=== PATIENT | male | born 1995 | race Caucasian/White ===

== ENCOUNTER 2017-02-26 17:42 | Emergency (ER) | payer OTHER ==
[2017-02-26 18:14] VITALS: BP 136/79
--- NOTE | 2017-02-26 18:21 | UC ---
Ear Complaint HPI - HPI Summary HPI Summary: 21 YEAR OLD MALE PRESENTS WITH COMPLAINS OF BLEEDING FROM THE LEFT EAR. - History of Current Complaint Chief Complaint: UCEar Stated Complaint: BLOOD & F.O.S IN EAR Time Seen by Provider: 02/26/17 18:18 Hx Obtained From: Patient Onset/Duration: Sudden Onset Severity Initially: Moderate Severity Currently: Moderate Pain Scale Used: 0-10 Numeric - 5 - Allergies/Home Medications Allergies/Adverse Reactions: Allergies Allergy/AdvReac Type Severity Reaction Status Date / Time No Known Allergies Allergy Verified 02/26/17 18:14 Home Medications: Home Medications SUMAtriptan TAB* [Imitrex TAB*] 100 mg PO SEE INSTRUCTIONS PRN 02/26/17 [ History Confirmed 02/26/17] PMH/Surg Hx/FS Hx/Imm Hx - Surgical History Surgical History: Yes Surgery Procedure, Year, and Place: WISDOM TOOTH appe 03/10 - Family History Known Family History: Positive: Hypertension - Social History Alcohol Use: Rare Substance Use Type: None Smoking Status (MU): Never Smoked Tobacco - Immunization History Most Recent Influenza Vaccination: none Review of Systems Constitutional: Negative Skin: Negative Eyes: Negative ENT: Ear Ache Respiratory: Negative Cardiovascular: Negative Gastrointestinal: Negative Genitourinary: Negative Motor: Negative Neurovascular: Negative Musculoskeletal: Negative Neurological: Negative Psychological: Negative All Other Systems Reviewed And Are Negative: Yes Physical Exam Triage Information Reviewed: Yes Vital Signs: Initial Vital Signs Temp 36.9 C 02/26/17 18:11 Pulse 74 02/26/17 18:11 Resp 16 02/26/17 18:11 BP 136/79 02/26/17 18:11 Pulse Ox 100 02/26/17 18:11 Vital Signs Reviewed: Yes Eye Exam: Normal ENT: Positive: Other: - EXTERNAL CANAL ERYTHEMA Dental Exam: Normal Neck exam: Normal Neck: Positive: 1 Respiratory Exam: Normal Cardiovascular Exam: Normal Abdominal Exam: Normal Musculoskeletal Exam: Normal Neurological Exam: Normal Psychological Exam: Normal Skin Exam: Normal Ear Complaint Course/Dx - Differential Dx/Diagnosis Provider Diagnoses: OTITIS EXTERNA Discharge - Discharge Plan Condition: Stable Disposition: HOME Prescriptions: Amoxicillin PO (*) [Amoxicillin 875 MG (*)] 875 mg PO BID #30 tab Neomyc/Polym/HC 1% OTIC SUSP* [Cortisporin Otic Susp 1%*] 4 drop LEFT EAR TID # 1 btl Patient Education Materials: Otitis Externa (ED) Referrals: Jake Diaz MD [Primary Care Provider] -
== END 2017-02-26 18:33 | disposition home or self-care (01) ==
LOC: UCEAST 17:42
DX: H60.92 Unspecified otitis externa, left ear (principal)
CPT/HCPCS: 99212; G0463

== ENCOUNTER → 2017-03-02 16:03 | Emergency (ER) | payer OTHER ==
[2017-03-02 18:43] LABS: Hematocrit 46 % (42-52); Hemoglobin 16.4 g/dl (14.0-18.0); Mean Corpuscular HGB Conc 36 g/dl (31-36); Mean Corpuscular Hemoglobin 29 pg (27-31); Mean Corpuscular Volume 82 fL (80-94); Mean Platelet Volume 10 um3 (7.4-10.4); Red Blood Count 5.58 10^6/ul (4.0-5.4); Red Cell Distribution Width 13 % (10.5-15); White Blood Count 7.4 10^3/ul (3.5-10.8)
[2017-03-02 18:47] LABS: Comments Flag Yes
[2017-03-02 18:57] LABS: Urine Bilirubin Negative (Negative); Urine Glucose Negative (Negative); Urine Nitrite Negative (Negative)
[2017-03-02 18:58] LABS: Albumin 4.8 g/dL (3.2-5.2); BUN/Creatinine Ratio 9.9 (8-20); C Reactive Protein 3.56 mg/L (< 5.00); Calcium 9.4 mg/dL (8.6-10.3); EGFR African American 135.3 (>60); EGFR Non-African American 105.2 (>60); Globulin 2.8 g/dL (2-4); Total Bilirubin 0.8 mg/dL (0.2-1.0); Total Protein 7.6 g/dL (6.4-8.9)
--- NOTE | 2017-03-02 20:22 | RAD ---
CLINICAL HISTORY: Right flank pain COMPARISON: None TECHNIQUE: Multiple contiguous axial CT scans were obtained of the abdomen and pelvis, without intravenous contrast enhancement. Coronal and sagittal multiplanar reformations are submitted for review. Oral contrast was not administered. FINDINGS: The study is limited by the lack of intravenous contrast. This limits evaluation of the solid organs and vasculature. LUNG BASES: The lung bases are clear. LIVER: The liver is normal in shape, size, contour, and attenuation. BILE DUCTS: There is no intrahepatic or extrahepatic biliary dilatation. GALLBLADDER: The gallbladder is normal, without pericholecystic inflammatory change. PANCREAS: The pancreas is normal, without mass or ductal dilatation. SPLEEN: The spleen is at the upper limits of normal in size UPPER GI TRACT: Evaluation of the gastrointestinal tract is limited by incomplete gastric distention. The upper GI tract is unremarkable. SMALL BOWEL AND MESENTERY: The small bowel is normal in contour, course, and caliber. There is no obstruction or dilatation. COLON: The colon is normal in contour, course, caliber. There is no pericolonic inflammatory change. The appendix is not clearly visualized. Surgical clips are noted in the region of the cecum consistent with previous appendectomy. ADRENALS: Normal bilaterally. KIDNEYS: The kidneys are normal in shape, size, contour, and axis. There is no hydronephrosis or nephrolithiasis. BLADDER: The bladder is smooth in contour. PELVIC ORGANS: The prostate gland is normal. The seminal vesicles are symmetric. AORTA: The aorta is normal. IVC: Unremarkable LYMPH NODES: There is no lymphadenopathy by size criteria. ABDOMINAL WALL: There is no evidence for abdominal wall hernia. BONES AND SOFT TISSUES: Unremarkable OTHER: None IMPRESSION: NO HYDRONEPHROSIS OR NEPHROLITHIASIS.
[2017-03-02 21:34] VITALS: BP 120/80
--- NOTE | 2017-03-02 22:50 | ED ---
Madhuri Monroe Rebecca, scribed for Tavo Vaughn on 03/02/17 at 1917 . Abdominal Pain/Male - HPI Summary HPI Summary: Pt is a 21 y/o M who presents to ED c/o RLQ abdominal pain. Sx began about 1 week ago and have been constant since onset. Pain is currently moderate, ranked 7/10 with occasional sharp, shooting sensations into the groin. Sx aggravated and alleviated by nothing. Additionally c/o N/V and decreased PO intake secondary to vomiting. PSHx appendectomy. Current pain is similar to that felt during appendicitis. - History of Current Complaint Chief Complaint: EDAbdPain Stated Complaint: LOWER ABD PAIN/FEVER/N/V Time Seen by Provider: 03/02/17 19:11 Hx Obtained From: Patient Onset/Duration: Lasting Weeks - 1 week, Still Present Timing: Constant Severity Currently: Moderate Pain Intensity: 7 Pain Scale Used: 0-10 Numeric Location: Discrete At: RLQ Radiates: Yes Radiates to: Inguinal - Occasional Character: Sharp - Occasional Aggravating Factor(s): Nothing Alleviating Factor(s): Nothing Associated Signs And Symptoms: Positive: Nausea, Vomiting, Other - Decreased PO intake Similar Episode/Dx As:: Sensation during appendicitis - Allergies/Home Medications Allergies/Adverse Reactions: Allergies Allergy/AdvReac Type Severity Reaction Status Date / Time No Known Allergies Allergy Verified 02/26/17 18:14 PMH/Surg Hx/FS Hx/Imm Hx Cardiovascular History: Reports: Hx Congenital Heart Disease, Other Cardiovascular Problems/Disorders - MITRAL REGURGITATION Respiratory History: Reports: Other Respiratory Problems/Disorders - Pulmonary HTN Denies: Hx Asthma Neurological History: Reports: Hx Seizures - Surgical History Surgery Procedure, Year, and Place: WISDOM TOOTH appe 03/10 Infectious Disease History: No Infectious Disease History: Denies: Traveled Outside the [place] in Last 30 Days - Family History Known Family History: Positive: Hypertension - Social History Alcohol Use: Rare Substance Use Type: Reports: None Smoking Status (MU): Never Smoked Tobacco Review of Systems Positive: Abdominal Pain, Vomiting, Nausea Positive: other - Decreased PO intake All Other Systems Reviewed And Are Negative: Yes Physical Exam - Summary Physical Exam Summary: Appearance: Well appearing, no pain distress Skin: warm, dry, reflects adequate perfusion Head/face: normal Eyes: EOMI, DANIELA ENT: normal Neck: supple, nontender Respiratory: CTA, breath sounds present Cardiovascular: RRR, pulses symmetrical Abdomen: RLQ and R flank tenderness, soft Bowel: present Musculoskeletal: normal, strength/ROM intact Neuro: normal, sensory motor intact, A&Ox3 Triage Information Reviewed: Yes Vital Signs On Initial Exam: Initial Vitals Temp Pulse Resp BP Pulse Ox 98.5 F 67 14 132/81 99 03/02/17 16:30 03/02/17 16:30 03/02/17 16:30 03/02/17 16:30 03/02/17 16:30 Vital Signs Reviewed: Yes Diagnostics - Vital Signs Vital Signs Temp Pulse Resp BP Pulse Ox 03/02/17 18:26 98.6 F 61 14 119/82 100 03/02/17 16:30 98.5 F 67 14 132/81 99 - Laboratory Lab Results: Lab Results 03/02/17 03/02/17 03/02/17 Range/Units 18:35 18:35 18:35 WBC 7.4 (3.5-10.8) 10^3/ul RBC 5.58 H (4.0-5.4) 10^6/ul Hgb 16.4 (14.0-18.0) g/dl Hct 46 (42-52) % MCV 82 (80-94) fL MCH 29 (27-31) pg MCHC 36 (31-36) g/dl RDW 13 (10.5-15) % Plt Count 186 (150-450) 10^3/ul MPV 10 (7.4-10.4) um3 Neut % (Auto) 65.1 (38-83) % Lymph % (Auto) 26.0 (25-47) % Banks % (Auto) 6.6 (1-9) % Eos % (Auto) 1.6 (0-6) % Baso % (Auto) 0.7 (0-2) % Absolute Neuts (auto) 4.8 (1.5-7.7) 10^3/ul Absolute Lymphs (auto) 1.9 (1.0-4.8) 10^3/ul Absolute Monos (auto) 0.5 (0-0.8) 10^3/ul Absolute Eos (auto) 0.1 (0-0.6) 10^3/ul Absolute Basos (auto) 0.1 (0-0.2) 10^3/ul Absolute Nucleated RBC 0.01 10^3/ul Nucleated RBC % 0.1 Sodium 137 (133-145) mmol/L Potassium 4.0 (3.5-5.0) mmol/L Chloride 104 (101-111) mmol/L Carbon Dioxide 27 (22-32) mmol/L Anion Gap 6 (2-11) mmol/L BUN 9 (6-24) mg/dL Creatinine 0.91 (0.67-1.17) mg/dL Est GFR ( Amer) 135.3 (>60) Est GFR (Non-Af Amer) 105.2 (>60) BUN/Creatinine Ratio 9.9 (8-20) Glucose 100 (70-100) mg/dL Lactic Acid 0.8 (0.5-2.0) mmol/L Calcium 9.4 (8.6-10.3) mg/dL Total Bilirubin 0.80 (0.2-1.0) mg/dL AST 13 (13-39) U/L ALT 14 (7-52) U/L Alkaline Phosphatase 51 (34-104) U/L C-Reactive Protein 3.56 (< 5.00) mg/L Total Protein 7.6 (6.4-8.9) g/dL Albumin 4.8 (3.2-5.2) g/dL Globulin 2.8 (2-4) g/dL Albumin/Globulin Ratio 1.7 (1-3) Lipase 10 L (11.0-82.0) U/L Urine Color Urine Appearance Urine pH (5-9) Ur Specific Putnam (1.010-1.030) Urine Protein (Negative) Urine Ketones (Negative) Urine Blood (Negative) Urine Nitrate (Negative) Urine Bilirubin (Negative) Urine Urobilinogen (Negative) Ur Leukocyte Esterase (Negative) Urine Glucose (Negative) 03/02/17 Range/Units 18:35 WBC (3.5-10.8) 10^3/ul RBC (4.0-5.4) 10^6/ul Hgb (14.0-18.0) g/dl Hct (42-52) % MCV (80-94) fL MCH (27-31) pg MCHC (31-36) g/dl RDW (10.5-15) % Plt Count (150-450) 10^3/ul MPV (7.4-10.4) um3 Neut % (Auto) (38-83) % Lymph % (Auto) (25-47) % Banks % (Auto) (1-9) % Eos % (Auto) (0-6) % Baso % (Auto) (0-2) % Absolute Neuts (auto) (1.5-7.7) 10^3/ul Absolute Lymphs (auto) (1.0-4.8) 10^3/ul Absolute Monos (auto) (0-0.8) 10^3/ul Absolute Eos (auto) (0-0.6) 10^3/ul Absolute Basos (auto) (0-0.2) 10^3/ul Absolute Nucleated RBC 10^3/ul Nucleated RBC % Sodium (133-145) mmol/L Potassium (3.5-5.0) mmol/L Chloride (101-111) mmol/L Carbon Dioxide (22-32) mmol/L Anion Gap (2-11) mmol/L BUN (6-24) mg/dL Creatinine (0.67-1.17) mg/dL Est GFR ( Amer) (>60) Est GFR (Non-Af Amer) (>60) BUN/Creatinine Ratio (8-20) Glucose (70-100) mg/dL Lactic Acid (0.5-2.0) mmol/L Calcium (8.6-10.3) mg/dL Total Bilirubin (0.2-1.0) mg/dL AST (13-39) U/L ALT (7-52) U/L Alkaline Phosphatase (34-104) U/L C-Reactive Protein (< 5.00) mg/L Total Protein (6.4-8.9) g/dL Albumin (3.2-5.2) g/dL Globulin (2-4) g/dL Albumin/Globulin Ratio (1-3) Lipase (11.0-82.0) U/L Urine Color Yellow Urine Appearance Cloudy Urine pH 6.0 (5-9) Ur Specific Putnam 1.025 (1.010-1.030) Urine Protein Negative (Negative) Urine Ketones Trace H (Negative) Urine Blood Negative (Negative) Urine Nitrate Negative (Negative) Urine Bilirubin Negative (Negative) Urine Urobilinogen Negative (Negative) Ur Leukocyte Esterase Negative (Negative) Urine Glucose Negative (Negative) Result Diagrams: 03/02/17 18:35 03/02/17 18:35 Lab Statement: Any lab studies that have been ordered have been reviewed, and results considered in the medical decision making process. - CT CT Abd/Pel CT Interpretation: No Acute Changes - NO HYDRONEPHROSIS OR NEPHROLITHIASIS. ED physician reviewed radiolgy report and agrees. CT Interpretation Completed By: Radiologist Re-Evaluation - Re-Evaluation First Eval Re-Evaluation Time: 21:16 Comment: Discussed CT results and D/C plan. Abdominal Pain Fem Course/Dx - Course Assessment/Plan: Pt is a 21 y/o M who presents to ED c/o RLQ abdominal pain. Sx began about 1 week ago and have been constant since onset. Pain is currently moderate, ranked 7/10 with occasional sharp, shooting sensations into the groin. Sx aggravated and alleviated by nothing. Additionally c/o N/V and decreased PO intake secondary to vomiting. PSHx appendectomy. Current pain is similar to that felt during appendicitis. UA negaive for UTI. Blood work was done. CT Abd/Pel reveals no acute findings. Pt will be D/C to home with Dx of flank pain with Rx for Motrin and a follow up with [facility] referral. He understands and agrees. Medications reviewed. Elevated BP noted. - Diagnoses Provider Diagnoses: Right flank pain Discharge - Discharge Plan Condition: Stable Disposition: HOME Prescriptions: Ibuprofen TAB* [Motrin TAB* 600 MG] 600 mg PO Q8H PRN #20 tab MDD 3 PRN Reason: Pain Patient Education Materials: Flank Pain (ED) Referrals: [facility]YSICIAN REFERRAL [Outside] - 3 Days The documentation as recorded by the Madhuri gray Rebecca accurately reflects the service I personally performed and the decisions made by , Tavo Vaughn.
== END | disposition home or self-care (01) ==
LOC: ED 16:03
DX: R10.31 Right lower quadrant pain (principal); R11.2 Nausea with vomiting, unspecified; R10.84 Generalized abdominal pain
CPT/HCPCS: 36415; 74176; 80053; 81003; 83605; 83690; 85025; 86140; 99282

== ENCOUNTER 2017-07-11 20:48 | Emergency (ER) | payer OTHER ==
[2017-07-11] MEDS ORDERED: Ketorolac INJ* 30 MG/ML 1 ML VIAL IM ONE (21:42)
[2017-07-11] MEDS ORDERED: Lidocaine PATCH 5%* 1 PATCH TRANSDERM SCH (22:00)
--- NOTE | 2017-07-11 22:08 | ED ---
Back Pain - HPI Summary HPI Summary: 22 male presents with back pain for the past 3 days. He states he states he was lifting something at work and developed the pain after. He states he feels swollen on his right side of his lower back. He denies any fevers. He denies any recent illness. Denies any saddle anesthesia or loss of bowel or bladder. He has chronic numbness and tingling down into his lower legs. He has a history of back pain. His pain is in the same location as previous back pain. He denies any recent imaging. He has been taking some ibuprofen with no relief. Has seen a chiropractor for this pain. Denies any dysuria or hematuria. He has history of MR and epilepsy. - History of Current Complaint Chief Complaint: EDBackInjuryPain Stated Complaint: BACK PAIN Time Seen by Provider: 07/11/17 21:29 Pain Intensity: 8 - Allergies/Home Medications Allergies/Adverse Reactions: Allergies Allergy/AdvReac Type Severity Reaction Status Date / Time No Known Allergies Allergy Verified 02/26/17 18:14 PMH/Surg Hx/FS Hx/Imm Hx Cardiovascular History: Reports: Hx Congenital Heart Disease, Other Cardiovascular Problems/Disorders - MITRAL REGURGITATION Respiratory History: Reports: Other Respiratory Problems/Disorders - Pulmonary HTN Denies: Hx Asthma Neurological History: Reports: Hx Seizures - Surgical History Surgery Procedure, Year, and Place: WISDOM TOOTH appe 03/10 Infectious Disease History: No Infectious Disease History: Denies: Traveled Outside the [place] in Last 30 Days - Family History Known Family History: Positive: Hypertension - Social History Alcohol Use: Rare Substance Use Type: Reports: None Smoking Status (MU): Never Smoked Tobacco Review of Systems Negative: Fever Negative: Chest Pain Negative: Shortness Of Breath Positive: Myalgia - back pain All Other Systems Reviewed And Are Negative: Yes Physical Exam Triage Information Reviewed: Yes Vital Signs On Initial Exam: Initial Vitals Temp Pulse Resp BP Pulse Ox 97.4 F 71 16 125/74 100 07/11/17 20:50 07/11/17 20:50 07/11/17 20:50 07/11/17 20:50 07/11/17 20:50 Vital Signs Reviewed: Yes Appearance: Positive: Well-Appearing Skin: Positive: Warm, Dry Head/Face: Positive: Normal Head/Face Inspection Eyes: Positive: Normal, Conjunctiva Clear Respiratory/Lung Sounds: Positive: Clear to Auscultation, Breath Sounds Present Cardiovascular: Positive: Normal, RRR Abdomen Description: Positive: Nontender, Soft Bowel Sounds: Positive: Present Musculoskeletal: Positive: Strength/ROM Intact - back, Other - tenderness to lower back, neg SLR, good pulses, sensation grossly intact Neurological: Positive: Normal Psychiatric: Positive: Normal Diagnostics - Vital Signs Vital Signs Temp Pulse Resp BP Pulse Ox 07/11/17 20:50 97.4 F 71 16 125/74 100 - Laboratory Lab Statement: Any lab studies that have been ordered have been reviewed, and results considered in the medical decision making process. - CT lumbar CT Interpretation: No Acute Changes CT Interpretation Completed By: Radiologist Back Pain Course/Dx - Course Course Of Treatment: 22 male presents with back pain for the past 3 days. He states he states he was lifting something at work and developed the pain after. He states he feels swollen on his right side of his lower back. He denies any fevers. He denies any recent illness. Denies any saddle anesthesia or loss of bowel or bladder. He has chronic numbness and tingling down into his lower legs. He has a history of back pain. His pain is in the same location as previous back pain. He denies any recent imaging. He has been taking some ibuprofen with no relief. Has seen a chiropractor for this pain. Denies any dysuria or hematuria. On exam tenderness lower back. Negative straight leg raise. Neurovascular intact. CT normal. will discharge with steriod and lidocaine patch. patient understand and agrees with plan. - Diagnoses Differential Diagnosis/HQI/PQRI: Positive: Herniated Disc, Strain, Sprain Provider Diagnoses: Back pain Discharge - Discharge Plan Condition: Good Disposition: HOME Prescriptions: Lidocaine PATCH 5%* [Lidoderm 5% Patch*] 1 patch TRANSDERM DAILY #6 patch methylPREDNISolone [Medrol Dosepak 4 MG*] 4 mg PO .SEE CINTHYA INSTRUCTION #1 packet Patient Education Materials: Back Pain (ED) Referrals: [facility] [Outside] Additional Instructions: Follow directions on package for Medrol pack Apply lidocaine patches to area for up to 12 hours in one 24 hour period Use ibuprofen or Tylenol for pain every 6 hours ice/heat area, move as much as possible Follow up with primary within 5 days Return to ED if develop any new or worsening symptoms
[2017-07-11] MEDS ORDERED: Dexamethasone TAB* 4 MG PO ONE (22:54)
[2017-07-11 23:20] VITALS: BP 115/82
--- NOTE | 2017-07-12 08:01 | RAD ---
HISTORY: Lower back pain COMPARISONS: None TECHNIQUE: Multiple contiguous axial CT scans were obtained of the lumbar spine without intravenous contrast, with coronal and sagittal multiplanar reformations. FINDINGS: SPINAL CANAL: Evaluation of the central canal is limited on CT technique; however, there is no obvious canalicular mass or epidural hemorrhage. ALIGNMENT: There is straightening of the lumbar lordosis. VERTEBRAL BODIES: The vertebral bodies are preserved in height. The bones are normal in attenuation. JOINTS: There is no subluxation or dislocation. MUSCULATURE: Normal INTERVERTEBRAL DISCS: The intervertebral disc spaces are relatively preserved in height. AXIAL IMAGES: There is no osseous neural foraminal area or central canal stenosis. SOFT TISSUES: The visualized soft tissues of the abdomen are unremarkable. OTHER: None IMPRESSION: STRAIGHTENING OF THE LUMBAR LORDOSIS. NO OSSEOUS NEURAL FORAMINAL AREA OR CENTRAL CANAL STENOSIS.
== END 2017-07-11 23:19 | disposition home or self-care (01) ==
LOC: ED 20:48
DX: M54.5 Low back pain (principal); F79 Unspecified intellectual disabilities; G40.909 Epilepsy, unspecified, not intractable, without status epilepticus; Q24.9 Congenital malformation of heart, unspecified; I27.20 Pulmonary hypertension, unspecified
CPT/HCPCS: 72131; 96372; 99282; A9270-GY; J1885; J8540

== ENCOUNTER → 2017-10-09 13:39 | Emergency (ER) | payer OTHER ==
[~2017-10-09 13:39] MED LIST: Lidocaine 1%* 5 ML VIAL INJ ONE
--- NOTE | 2017-10-09 16:37 | ED ---
Laceration/Wound HPI - HPI Summary HPI Summary: Patient is a 22-year-old male who presents emergency department for facial laceration that occurred just prior to arrival. Patient states he was fishing in the sinker on the fishing pole came back and hit him above the left eye. No visual changes. Symptoms are mild in severity. Patient states last tetanus immunization less than 5-10 yrs. No other injuries were sustained. Symptoms are mild in severity. Touching wound makes symptoms worse. Rest makes symptoms better. - History of Current Complaint Stated Complaint: LT EYEBROW INJURY Time Seen by Provider: 10/09/17 15:29 Hx Obtained From: Patient Pain Intensity: 0 - Allergy/Home Medications Allergies/Adverse Reactions: Allergies Allergy/AdvReac Type Severity Reaction Status Date / Time No Known Allergies Allergy Verified 02/26/17 18:14 PMH/Surg Hx/FS Hx/Imm Hx Previously Healthy: Yes Cardiovascular History: Reports: Hx Congenital Heart Disease, Other Cardiovascular Problems/Disorders - MITRAL REGURGITATION Respiratory History: Reports: Other Respiratory Problems/Disorders - Pulmonary HTN Denies: Hx Asthma Neurological History: Reports: Hx Seizures - Surgical History Surgery Procedure, Year, and Place: WISDOM TOOTH appe 03/10 Infectious Disease History: No Infectious Disease History: Denies: Traveled Outside the [place] in Last 30 Days - Family History Known Family History: Positive: Hypertension - Social History Occupation: Student Lives: With Family Alcohol Use: Rare Substance Use Type: Reports: None Smoking Status (MU): Never Smoked Tobacco Review of Systems Eyes: Negative Positive: Other - Laceration below left eyebrow Neurological: Negative All Other Systems Reviewed And Are Negative: Yes Physical Exam Triage Information Reviewed: Yes Vital Signs On Initial Exam: Initial Vitals Temp Pulse Resp BP Pulse Ox 99.2 F 82 16 127/89 96 10/09/17 13:41 10/09/17 13:41 10/09/17 13:41 10/09/17 13:41 10/09/17 13:41 Vital Signs Reviewed: Yes Appearance: Positive: Well-Appearing - Patient sitting in bed in no acute distress. Significant other present. Head/Face: Positive: Normal Head/Face Inspection, Other - 1 cm laceration noted just below the left mid eyebrow. Eyes: Positive: Normal, EOMI, DANIELA Neck: Positive: Supple Neurological: Positive: Normal, CN Intact II-III Psychiatric: Positive: Normal Procedures - Laceration/Wound Repair 1 Location: face - Just below left eyebrow Length, Depth and Shape: 1 cm linear Betadine Prep?: No - Hibiclens Laceration/Wound Explored: clean Closure: Single Layer Suture Type: Nylon - 3 6-0 Number of Sutures: 3 Layer Closure?: No Sterile Dressing Applied?: Yes Diagnostics - Vital Signs Vital Signs Temp Pulse Resp BP Pulse Ox 10/09/17 13:41 99.2 F 82 16 127/89 96 - Laboratory Lab Statement: Any lab studies that have been ordered have been reviewed, and results considered in the medical decision making process. Laceration Repair Course/Dx - Course Course Of Treatment: Patient presenting for a simple face show laceration was repaired as above. Suture removal in 5 days. Keep wound clean and dry. Ice and elevate intermittently. To call the [facility] referral line for a family doctor. Return to the ER for redness, swelling or drainage. Can take Tylenol or Motrin for pain as directed. Patient understands and agrees with plan. - Differential Dx Differental Diagnoses: Foreign Body, Fracture, Laceration - Clinical Impression Provider Diagnoses: Facial laceration Discharge - Sign-Out/Discharge Documenting (check all that apply): Discharge/Admit/Transfer - Discharge Plan Condition: Good Disposition: HOME Patient Education Materials: Facial Laceration (ED) Referrals: [facility] PHYSICIAN REFERRAL [Outside] No Primary Care Phys,NOPCP [Primary Care Provider] - Additional Instructions: Suture removal in 5 days Call the [facility] referral to establish a PCP Ice intermittently Tylenol or Motrin for pain as directed Return to ER for redness, swelling or drainage from wound - Billing Disposition and Condition Condition: GOOD Disposition: HOME
[2017-10-09 18:22] VITALS: BP 118/72
== END | disposition home or self-care (01) ==
LOC: ED 13:39
DX: S01.111A Laceration without foreign body of right eyelid and periocular area, initial encounter (principal); W26.9XXA Contact with unspecified sharp object(s), initial encounter; Y93.89 Activity, other specified; Y92.9 Unspecified place or not applicable
CPT/HCPCS: 12011; 99281

== ENCOUNTER 2017-11-15 14:29 | Emergency (ER) | payer OTHER ==
[2017-11-15] MEDS ORDERED: Tetan/Diph/Pertus SYR(Tdap)* 0.5 ML SYR(BOOSTRIX) use SYR IM ONE (14:46)
--- NOTE | 2017-11-15 15:28 | ED ---
Laceration/Wound HPI - HPI Summary HPI Summary: Patient a 22-year-old male presenting to the ED with chief complaint of laceration to the left dorsum of the thumb measuring approximately 3.5 cm in length and 0.5 cm in width with 0.3 cm in depth. He sustained the injury with a utility knife just [employer]. Bleeding is well controlled on arrival. He denies any anticoagulation medications. Tetanus is unknown. Denies any numbness or tingling, however endorses limitations to movement. - History of Current Complaint Stated Complaint: LT HAND LAC Time Seen by Provider: 11/15/17 14:35 Hx Obtained From: Patient Onset/Duration: Sudden Onset Aggravating: Movement Timing: Constant Onset Severity: Mild Current Severity: Mild Pain Intensity: 0 Pain Scale Used: 0-10 Numeric Associated Signs & Symptoms: Negative Related Hx: Dominant Hand (Right) - Allergy/Home Medications Allergies/Adverse Reactions: Allergies Allergy/AdvReac Type Severity Reaction Status Date / Time No Known Allergies Allergy Verified 11/15/17 14:32 Home Medications: Home Medications Ibuprofen TAB* [Motrin TAB* 800 MG] 800 mg PO Q6H PRN 11/15/17 [History Confirmed 11/15/17] PMH/Surg Hx/FS Hx/Imm Hx Previously Healthy: Yes Cardiovascular History: Reports: Hx Congenital Heart Disease, Other Cardiovascular Problems/Disorders - MITRAL REGURGITATION Respiratory History: Reports: Other Respiratory Problems/Disorders - Pulmonary HTN Denies: Hx Asthma Neurological History: Reports: Hx Seizures - Surgical History Surgery Procedure, Year, and Place: [facility] appe 03/10 - Immunization History Date of Tetanus Vaccine: 2012 Hx Pertussis Vaccination: No Immunizations Up to Date: Unable to Obtain/Confirm Infectious Disease History: No Infectious Disease History: Denies: Traveled Outside the [place] in Last 30 Days - Family History Known Family History: Positive: Hypertension - Social History Occupation: Employed Full-time Lives: With Family Alcohol Use: None Substance Use Type: Reports: None Smoking Status (MU): Never Smoked Tobacco Review of Systems Constitutional: Negative Negative: Fever, Chills, Fatigue, Skin Diaphoresis Negative: Epistaxis, Dental Pain Negative: Palpitations, Chest Pain Negative: Shortness Of Breath, Cough Genitourinary: Negative Positive: no symptoms reported, see HPI Neurological: Negative All Other Systems Reviewed And Are Negative: Yes Physical Exam Triage Information Reviewed: Yes Vital Signs On Initial Exam: Initial Vitals Temp Pulse Resp BP Pulse Ox 97.2 F 76 18 146/85 96 11/15/17 14:30 11/15/17 14:30 11/15/17 14:30 11/15/17 14:30 11/15/17 14:30 Vital Signs Reviewed: Yes Appearance: Positive: Well-Appearing Skin: Positive: Warm, Skin Color Reflects Adequate Perfusion, Other - laceration Head/Face: Positive: Normal Head/Face Inspection Neck: Positive: Supple, No Lymphadenopathy Respiratory/Lung Sounds: Positive: Clear to Auscultation, Breath Sounds Present Cardiovascular: Positive: RRR, Pulses are Symmetrical in both Upper and Lower Extremities Musculoskeletal: Positive: Normal, Strength/ROM Intact Neurological: Positive: Speech Normal Psychiatric: Positive: Normal, Affect/Mood Appropriate AVPU Assessment: Alert Procedures - Laceration/Wound Repair 1 Location: upper extremity Description: Linear Anesthesia: Local Length, Depth and Shape: 3.5 cm length Laceration/Wound Explored: clean Suture Type: Prolene Number of Sutures: 8 Layer Closure?: No Sterile Dressing Applied?: No Diagnostics - Vital Signs Vital Signs Temp Pulse Resp BP Pulse Ox 11/15/17 14:30 97.2 F 76 18 146/85 96 - Laboratory Lab Statement: Any lab studies that have been ordered have been reviewed, and results considered in the medical decision making process. Laceration Repair Course/Dx - Course Course Of Treatment: During the course of treatment, the patient is evaluated for laceration to the left thumb. He is evaluated for a tendon laceration. On physical examination there is a 3.5 cm laceration to the dorsum of the left thumb. Patient is able to extend, good opposition, abduction, abduction reposition and extension and flexion, however he is unable to flex the IP joint. This is inconsistent with the anatomy of the flexor tendons to the palmar side with the scheduling assistant tendons just near the laceration. Thoroughly with normal saline, adequate local anesthetic with lidocaine without epi 2ml used. Laceration repair with 8 sutures simple interrupted, appropriated well. Tetanus updated. After laceration repair, patient is able to flex slightly at the IP joint. I have given him a referral to hand surgery for any worsening symptoms or limitations in movement. Suture removal otherwise in 7-10 days. Bandage applied. Good capillary refill, pulses +2 intact bilaterally. - Clinical Impression Provider Diagnoses: Laceration of thumb Discharge - Sign-Out/Discharge Documenting (check all that apply): Discharge/Admit/Transfer - Discharge Plan Condition: Stable Disposition: HOME Patient Education Materials: Care For Your Stitches (ED), Laceration (ED) Forms: *Work Release Referrals: Jake Rubio MD [Medical Doctor] - No Primary Care Phys,NOPCP [Primary Care Provider] - Additional Instructions: Suture removal in 7-10 days depending on healing If you develop any dry areas of crusting around the wound, you may use an antibiotic ointment Tetanus is updated today Keep the area covered while in dirty environments, however when at home, leave open to air after 24 hours - Billing Disposition and Condition Condition: STABLE Disposition: Home
[2017-11-15 15:36] VITALS: BP 136/81
== END 2017-11-15 15:35 | disposition home or self-care (01) ==
LOC: ED 14:29
DX: S61.012A Laceration without foreign body of left thumb without damage to nail, initial encounter (principal); W26.0XXA Contact with knife, initial encounter; Z23 Encounter for immunization; I34.0 Nonrheumatic mitral (valve) insufficiency; I27.20 Pulmonary hypertension, unspecified
CPT/HCPCS: 12002; 90471; 90715; 99282

== ENCOUNTER 2018-05-06 08:36 | Emergency (ER) | payer OTHER ==
[2018-05-06] MEDS ORDERED: NS 0.9% 1000 ML* 1,000 ML IV ONE (08:57)
[2018-05-06] MEDS ORDERED: Ketorolac INJ* 30 MG/ML 1 ML VIAL IV ONE (08:57)
--- NOTE | 2018-05-06 09:07 | ED ---
Abdominal Pain/Male - HPI Summary HPI Summary: A 22 y/o male presents to [facility] with a chief complaint fo right sided abd pain for a few days. He states that he is unable to sleep due to this pain and he rates his pain as a 8/10. He describes this pain s discomfort. He also c/o nausea but denies vomiting. He states that he has had little frequency of bowel movements, but when he does he states there is a lot. He has a SHx of an appendectomy in 2016. He is a nonsmoker and denies EtOH or drug use. - History of Current Complaint Chief Complaint: EDFlankPain Stated Complaint: RIGHT FLANK PAIN Time Seen by Provider: 05/06/18 08:52 Hx Obtained From: Patient Onset/Duration: Sudden Onset, Lasting Days, Still Present Timing: Constant, Lasting Days Severity Initially: Severe Severity Currently: Severe Pain Intensity: 8 Pain Scale Used: 0-10 Numeric Location: Discrete At: RUQ, Discrete At: RLQ Radiates: No Character: Other: - discomfort Aggravating Factor(s): Nothing Alleviating Factor(s): Nothing Associated Signs And Symptoms: Positive: Nausea. Negative: Constipation, Vomiting - Allergies/Home Medications Allergies/Adverse Reactions: Allergies Allergy/AdvReac Type Severity Reaction Status Date / Time No Known Allergies Allergy Verified 11/15/17 14:32 PMH/Surg Hx/FS Hx/Imm Hx Endocrine/Hematology History: Denies: Hx Diabetes Cardiovascular History: Reports: Hx Congenital Heart Disease, Other Cardiovascular Problems/Disorders - MITRAL REGURGITATION Denies: Hx Hypercholesterolemia, Hx Hypertension Respiratory History: Reports: Other Respiratory Problems/Disorders - Pulmonary HTN Denies: Hx Asthma Neurological History: Reports: Hx Seizures - Surgical History Surgery Procedure, Year, and Place: [facility] appe 03/10, appendectomy 2016 - Immunization History Date of Tetanus Vaccine: 2012 Infectious Disease History: No Infectious Disease History: Denies: Traveled Outside the [place] in Last 30 Days - Family History Known Family History: Positive: Hypertension Negative: Diabetes - Social History Alcohol Use: None Substance Use Type: Reports: None Smoking Status (MU): Never Smoked Tobacco Review of Systems Negative: Fever Gastrointestinal: Negative - constipation Positive: Abdominal Pain, Nausea. Negative: Vomiting All Other Systems Reviewed And Are Negative: Yes Physical Exam - Summary Physical Exam Summary: VITAL SIGNS: Reviewed. GENERAL: Patient is a well-developed and nourished male who is lying comfortable in the stretcher. Patient is not in any acute respiratory distress. HEAD AND FACE: Normocephalic and atraumatic. EYES: PERRLA, EOMI x 2, No injected conjunctiva. EARS: Hearing grossly intact. Ear canals and tympanic membranes are WNL. MOUTH: Oropharynx within normal limits. NECK: Supple, trachea is midline, no adenopathy, no JVD. CHEST: Symmetric, no tenderness at palpation LUNGS: Clear to auscultation bilaterally. No wheezing or crackles. CVS: RRR, S1 and S2 present, no murmurs or gallops appreciated. ABDOMEN: Right CVA tenderness. No signs of distention. Positive bowel sounds. No rebound no guarding, and no masses palpated. No abdominal bruit or pulsations. EXTREMITIES: FROM in all major joints, no edema, no cyanosis or clubbing. NEURO: Alert and oriented x 3. No acute neurological deficits. Speech is normal. SKIN: Dry and warm Triage Information Reviewed: Yes Vital Signs On Initial Exam: Initial Vitals Temp Pulse Resp BP Pulse Ox 98.2 F 67 18 130/84 98 05/06/18 08:39 05/06/18 08:39 05/06/18 08:39 05/06/18 08:39 05/06/18 08:39 Vital Signs Reviewed: Yes Diagnostics - Vital Signs Vital Signs Temp Pulse Resp BP Pulse Ox 05/06/18 08:39 98.2 F 67 18 130/84 98 - Laboratory Result Diagrams: 05/06/18 09:17 05/06/18 09:17 Lab Statement: Any lab studies that have been ordered have been reviewed, and results considered in the medical decision making process. - CT abdomen/pelvis CT Interpretation Completed By: Radiologist Summary of CT Findings: 1. NO EVIDENCE RENAL CALCULI OR HYDRONEPHROSIS. 2. SPLENOMEGALY, UNCHANGED. ED physician has reviewed this imaging report. Re-Evaluation - Re-Evaluation First Eval Re-Evaluation Time: 10:35 Change: Improved Comment: Patient is ready for DC. Abdominal Pain Fem Course/Dx - Course Assessment/Plan: A 22 y/o male presents to [facility] with a chief complaint of right sided abd pain for a few days. He states that he is unable to sleep due to this pain and he rates his pain as a 8/10. He describes this pain s discomfort. He also c/o nausea but denies vomiting. He states that he has had little frequency of bowel movements, but when he does he states there is a lot. He has a SHx of an appendectomy in 2016. He is a nonsmoker and denies EtOH or drug use. Blood work without any significant abnormality except for glucose 109 ,. Abdominopelvic CT impression: no evidence of renal calculi or hydronephrosis. Or splenomegaly isnt change. In the ED course the patient was given IV fluids and he was given Toradol for the pain. Between the reexamination after Toradol the patients symptoms have resolved. The patient reports he is feeling better. Therefore the patient will be discharged home with follow-up with primary care physician. I discussed all the findings and test results with the patient. Patient was instructed to return to the emergency room immediately if any of the symptoms return or worsens. Plan of care was discussed with the patient and understands and agrees. All questions were answered at patient satisfaction. There were no further complaints or concerns. Lung exam before discharge: CTA B/L. Good air exchange. No wheezing or crackles heard. CVS: S1 and S2 present. No murmurs appreciated. Patient is alert and oriented x 3. Patient is hemodynamically stable. Patient will be discharged home with follow up PCP in the next 2-3 days - Diagnoses Differential Diagnosis/HQI/PQRI: Bowel Obstruction, Constipation, Diverticulitis , Epididymitis, Testicular Torsion, Ureteral Stone Provider Diagnoses: Flank pain Discharge - Sign-Out/Discharge Documenting (check all that apply): Patient Departure - DC - Discharge Plan Condition: Stable Disposition: HOME Forms: *Work Release Referrals: [facility] [place] PH[facility]ICIAN REFERRAL [Outside] (3 days) Additional Instructions: Return to the ED for any worsening or new symptoms. - Billing Disposition and Condition Condition: STABLE Disposition: Home - Attestation Statements Document Initiated by Scribe: Yes Documenting Scribe: Rfaael Suarez Provider For Whom Betsy is Documenting (Include Credential): Jeronimo Grant MD Scribe Attestation: Rafael Monroe, scribed for Jeronimo Grant MD on 05/07/18 at 1027. Scribe Documentation Reviewed: Yes Provider Attestation: The documentation as recorded by the Rafael gray accurately reflects the service I personally performed and the decisions made by me, Jeronimo Grant MD Status of Scribe Document: Viewed Attestations User Type: Provider with Scribe Provider Attestation: The documentation recorded by the scribe accurately reflects the service I personally performed and the decisions made by me.
[2018-05-06 09:40] LABS: ABS Basophils 0 10^3/ul (0-0.2); ABS Eosinophils 0.2 10^3/ul (0-0.6); ABS Lymphocytes 1.7 10^3/ul (1.0-4.8); ABS Monocytes 0.5 10^3/ul (0-0.8); ABS Neutrophils 3.6 10^3/ul (1.5-7.7); ABS Nucleated RBC 0 10^3/ul; Eosinophil % 2.6 %; Hematocrit 42 % (42-52); Hemoglobin 14.4 g/dl (14.0-18.0); Mean Corpuscular HGB Conc 34 g/dl (31-36); Mean Corpuscular Hemoglobin 28 pg (27-31); Mean Corpuscular Volume 83 fL (80-94); Mean Platelet Volume 10.2 fL (7.4-10.4); Nucleated Red Blood Cells % 0.2; Platelet Count 166 10^3/ul (150-450); Red Blood Count 5.07 10^6/ul (4.00-5.40); Red Cell Distribution Width 13 % (10.5-15)
[2018-05-06 09:56] LABS: EGFR Non-African American 132.3 (>60)
[2018-05-06 10:40] LABS: Urine Appearance Clear; Urine Blood Negative (Negative); Urine Color Straw; Urine Ketones Negative (Negative); Urine Protein Negative (Negative); Urine Specific Gravity 1.012 (1.010-1.030); Urine Urobilinogen Negative (Negative)
[2018-05-06 11:04] VITALS: BP 130/72
== END 2018-05-06 11:02 | disposition home or self-care (01) ==
LOC: ED 08:36
DX: R10.11 Right upper quadrant pain (principal); R10.31 Right lower quadrant pain; R11.0 Nausea; R16.1 Splenomegaly, not elsewhere classified; Z90.89 Acquired absence of other organs
CPT/HCPCS: 36415; 74176; 80053; 81003; 83605; 83690; 85025; 86140; 96374; 99282; J1885

== ENCOUNTER 2018-07-13 10:28 | Emergency (ER) | payer OTHER ==
[2018-07-13 11:27] VITALS: BP 120/76
--- NOTE | 2018-07-13 11:39 | UC ---
FLU HPI - HPI Summary HPI Summary: 23 yo male presents with fever, body aches, dry cough, fatigue, and loose stool since yesterday. He tried to go to work today, but felt too "lousy". Has felt feverish, but has not taken his temperature. Has not taken anything OTC for his symptoms. Denies SOB, chest pain, abdominal pain, n/v. - History of Current Complaint Chief Complaint: UCGeneralIllness Stated Complaint: FLU LIKE SYMP Time Seen by Provider: 07/13/18 11:39 Hx Obtained From: Patient Onset/Duration: Sudden Onset Severity Currently: Moderate Severity Initially: Moderate Pain Intensity: 8 Pain Scale Used: 0-10 Numeric - Allergy/Home Medications Allergies/Adverse Reactions: Allergies Allergy/AdvReac Type Severity Reaction Status Date / Time No Known Allergies Allergy Verified 07/13/18 11:28 PMH/Surg Hx/FS Hx/Imm Hx - Additional Past Medical History Additional PMH: None - Surgical History Surgical History: Yes Surgery Procedure, Year, and Place: [facility] appe 03/10, appendectomy 2015 - Family History Known Family History: Positive: Hypertension Negative: Diabetes - Social History Occupation: Employed Full-time Lives: With Family Alcohol Use: None Substance Use Type: None Smoking Status (MU): Never Smoked Tobacco - Immunization History Most Recent Influenza Vaccination: none Review of Systems All Other Systems Reviewed And Are Negative: Yes Constitutional: Positive: Chills, Fatigue, Other - Body aches Skin: Positive: Negative Eyes: Positive: Negative ENT: Positive: Sinus Congestion Respiratory: Positive: Cough Cardiovascular: Positive: Negative Gastrointestinal: Positive: Other - loose stool Physical Exam - Summary Physical Exam Summary: GENERAL: NAD. WDWN. No pain distress. SKIN: No rashes, sores, lesions, or open wounds. HEENT: Head: AT/NC Eyes: EOM intact. Conjunctiva clear without inflammation or discharge. Ears: Hearing grossly normal. TMs intact, no bulging, erythema, or edema. Nose: Nasal mucosa pink and moist. NTTP maxillary and frontal sinus. Throat: Posterior oropharynx without exudates, erythema, or tonsillar enlargement. Uvula midline. NECK: Supple. Nontender. No lymphadenopathy. CHEST: CTAB. No r/r/w. No accessory muscle use. Breathing comfortably and in no distress. CV: RRR. Without m/r/g. Pulses intact. Cap refill <2seconds NEURO: Alert. PSYCH: Age appropriate behavior. Triage Information Reviewed: Yes Vital Signs: Initial Vital Signs Temp 98.6 F 07/13/18 11:24 Pulse 80 07/13/18 11:24 Resp 18 07/13/18 11:24 BP 120/76 07/13/18 11:24 Pulse Ox 99 07/13/18 11:24 Laboratory Tests 07/13/18 12:00 Influenza A (Rapid) Positive A Vital Signs Reviewed: Yes Flu Course/Dx - Course Course Of Treatment: POC flu positive. Rx for tamiflu - Differential Dx/Diagnosis Provider Diagnosis: Influenza Discharge - Sign-Out/Discharge Documenting (check all that apply): Patient Departure All imaging exams completed and their final reports reviewed: No Studies - Discharge Plan Condition: Stable Disposition: HOME Prescriptions: Oseltamivir CAP* [Tamiflu CAP*] 75 mg PO BID #10 cap Patient Education Materials: Influenza (DC) Forms: *Work Release Referrals: Luciano Chase MD [Primary Care Provider] - Additional Instructions: If you develop a fever, shortness of breath, chest pain, new or worsening symptoms - please call your PCP or go to the ED. Rest and drink plenty of fluids! - Billing Disposition and Condition Condition: STABLE Disposition: Home - Attestation Statements Provider Attestation: Per institutional requirements, I have reviewed the chart, however, I was not consulted specifically or made aware of this patient by the midlevel provider. I did not personally evaluate, interact with , or disposition this patient.
[2018-07-13 12:04] LABS: Influenza A Molecular POSITIVE (Negative)
== END 2018-07-13 12:20 | disposition home or self-care (01) ==
LOC: UCEAST 10:28
DX: J10.1 Influenza due to other identified influenza virus with other respiratory manifestations (principal)
CPT/HCPCS: 99212; G0463

== ENCOUNTER 2019-06-12 14:19 | Emergency (ER) | payer OTHER ==
--- NOTE | 2019-06-12 15:57 | ED ---
Headache - HPI Summary HPI Summary: This patient is a 23 year old male with a Hx of seizures presenting to [facility] with a chief complaint of migraines. He states he had a seizure 5 days ago and has had a constant, worsening migraine ever since. He states the pain radiates down his neck and to his eyes. He states he has migraine medication which he cannot remember the name of but cannot take it because it increases the risk of seizures. He states he had 7-8 seizures this past months. His states he started having seizures 4 years ago and he does not follow with a neurologist. Previously on depakote and also keppra but was on high doses keppra. Was following at [facility]. Hx epilepsy in brother. - History Of Current Complaint Chief Complaint: EDHeadache Stated Complaint: HEADACH X5 DAYS PER PT Time Seen by Provider: 06/12/19 15:44 Hx Obtained From: Patient Onset/Duration: Started days ago Character: Migraine - Allergies/Home Medications Allergies/Adverse Reactions: Allergies Allergy/AdvReac Type Severity Reaction Status Date / Time No Known Allergies Allergy Verified 06/12/19 14:23 PMH/Surg Hx/FS Hx/Imm Hx Endocrine/Hematology History: Denies: Hx Diabetes, Hx Thyroid Disease Cardiovascular History: Reports: Hx Congenital Heart Disease, Other Cardiovascular Problems/Disorders - MITRAL REGURGITATION Denies: Hx Hypercholesterolemia, Hx Hypertension Respiratory History: Reports: Other Respiratory Problems/Disorders - Pulmonary HTN Denies: Hx Asthma, Hx Chronic Obstructive Pulmonary Disease (COPD) GI History: Denies: Hx Ulcer Neurological History: Reports: Hx Seizures - Surgical History Surgery Procedure, Year, and Place: [facility] appe 03/10, appendectomy 2015 - Immunization History Date of Tetanus Vaccine: 2012 Infectious Disease History: No Infectious Disease History: Denies: Hx Hepatitis, Hx Human Immunodeficiency Virus (HIV), Traveled Outside the [place] in Last 30 Days - Family History Known Family History: Positive: Hypertension Negative: Diabetes - Social History Alcohol Use: None Substance Use Type: Reports: None Smoking Status (MU): Never Smoked Tobacco Review of Systems Negative: Fever Positive: Headache All Other Systems Reviewed And Are Negative: Yes Physical Exam - Summary Physical Exam Summary: Constitutional: Well-developed, Well-nourished, Alert. (-) Distressed Skin: Warm, Dry HENT: Normocephalic; Atraumatic Eyes: Conjunctiva normal Neck: Musculoskeletal ROM normal neck. (-) JVD, (-) Nuchal rigidity Cardio: Rhythm regular, rate normal, Heart sounds normal; Intact distal pulses; Radial pulses are 2+ and symmetric. (-) Murmur Pulmonary/Chest wall: Effort normal. (-) Respiratory distress, (-) Wheezes, (-) Rales Abd: Soft. (-) Tenderness, (-) Distension, (-) Guarding, (-) Rebound Musculoskeletal: (-) Edema Lymph: (-) Cervical adenopathy Neuro: Alert, PERRL, Oriented x3, Strength normal, Cranial nerves II-XII are grossly intact. SILT, Strength 5/5 BUE and BLE, (-) Dysmetria, (-) Nystagmus, ambulates w steady gait. Psych: Mood and affect Normal Triage Information Reviewed: Yes Vital Signs On Initial Exam: Initial Vitals Temp Pulse Resp BP Pulse Ox 98.1 F 78 19 131/101 99 06/12/19 14:20 06/12/19 14:20 06/12/19 14:20 06/12/19 14:20 06/12/19 14:20 Vital Signs Reviewed: Yes Procedures - Sedation Patient Received Moderate/Deep Sedation with Procedure: No Diagnostics - Vital Signs Vital Signs Temp Pulse Resp BP Pulse Ox 06/12/19 14:20 98.1 F 78 19 131/101 99 - Laboratory Result Diagrams: 06/12/19 16:12 06/12/19 16:12 Lab Statement: Any lab studies that have been ordered have been reviewed, and results considered in the medical decision making process. Re-Evaluation - Re-Evaluation First Eval Re-Evaluation Time: 16:54 Change: Improved Comment: Patient states he feels better. Headache Course/Dx - Course Course Of Treatment: 23 y/o male w hx of seizures, migraines presents with migraine after seizure one week ago. - Normal neuro exam, no trauma. Patient reports history of seizures since 2014, presents with typical and Keppra. Has undergone medications for a while. [facility] brain obtained without any focal abnormalities. Labs unremarkable. Discussed with on -call neurology who recommends Depakote twice a day. Regarding headache, he has a history of headaches of similar type. This is not the worst headache patient has had, and no additional features today to suggest need for further workup on a truly emergent basis. [place] better w IVF, reglan, fioricet. - Diagnoses Provider Diagnoses: Migraine - Physician Notifications Discussed Care Of Patient With: Lucas Sandy - Neurology Time Discussed With Above Provider: 16:46 - Reccomends Dipicote 750 mg BID. Discharge ED - Sign-Out/Discharge Documenting (check all that apply): Patient Departure - Discharge - Discharge Plan Condition: Stable Disposition: HOME Prescriptions: Divalproex ER TAB(*) [Depakote ER TAB(*)] 750 mg PO BID 30 Days #90 tab.er Patient Education Materials: New-Onset Seizure in Adults (ED) Referrals: Luciano Chase MD [Primary Care Provider] - Lucas Sandy MD [Medical Doctor] - Additional Instructions: You were seen in the emergency department for a seizure. Please follow-up with a neurologist. Please take a shower and do not take a bath, do not swim alone. Do not drive or operate machinery. Please take 750 mg depakote twice a day and follow-up with your doctor in the next 1-2 days. Please return to emergency department for worsening headaches, confusion, continued seizures, or if you're concerned - Billing Disposition and Condition Condition: STABLE Disposition: Home - Attestation Statements Document Initiated by Scribe: Yes Documenting Scribe: Jake De Paz Provider For Whom Betsy is Documenting (Include Credential): Madelin Orourke MD Scribe Attestation: IJake, scribed for Madelin Orourke MD on 06/12/19 at 1741. Scribe Documentation Reviewed: Yes Provider Attestation: The documentation as recorded by the Jake gray accurately reflects the service I personally performed and the decisions made by me, Madelin Orourke MD Status of Scribe Document: Viewed
[2019-06-12] MEDS ORDERED: Metoclopramide IV* 5 MG/ML 2 ML VIAL IV SLOW PU ONE (16:05)
[2019-06-12] MEDS ORDERED: NS 0.9% 1000 ML** 1,000 ML IV ONE (16:05)
[2019-06-12] MEDS ORDERED: Butalb/Acetamin/Caff TAB* 1 TAB PO ONE (16:05)
[2019-06-12 16:22] LABS: ABS Eosinophils 0.1 10^3/ul (0-0.6); ABS Lymphocytes 1.6 10^3/ul (1.0-4.8); ABS Monocytes 0.4 10^3/ul (0-0.8); ABS Neutrophils 3.7 10^3/ul (1.5-7.7); Eosinophil % 1.9 %; Hematocrit 44 % (42-52); Hemoglobin 15.8 g/dL (14.0-18.0); Mean Corpuscular HGB Conc 36 g/dL (31-36); Mean Corpuscular Hemoglobin 30 pg (27-31); Mean Corpuscular Volume 83 fL (80-94); Mean Platelet Volume 9.6 fL (7.4-10.4); Nucleated Red Blood Cells % 0.1; Platelet Count 179 10^3/uL (150-450); Red Blood Count 5.36 10^6 /uL (4.18-5.48); Red Cell Distribution Width 13 % (10-15); White Blood Count 5.8 10^3/uL (3.5-10.8)
[2019-06-12 16:35] LABS: Albumin 4.6 g/dL (3.2-5.2); Albumin/Globulin Ratio 1.8 (1-3); BUN/Creatinine Ratio 18.4 (8-20); Calcium 9.1 mg/dL (8.6-10.3); EGFR African American 153.8 (>60); EGFR Non-African American 127.1 (>60); Globulin 2.5 g/dL (2-4); Potassium 4.3 mmol/L (3.5-5.0); Total Bilirubin 0.6 mg/dL (0.2-1.0); Total Protein 7.1 g/dL (6.4-8.9)
[2019-06-12] MEDS ORDERED: Divalproex ER TAB(*) 250 MG PO ONE (16:45)
[2019-06-12 17:54] VITALS: BP 123/74
== END 2019-06-12 17:53 | disposition home or self-care (01) ==
LOC: ED 14:19
DX: G43.909 Migraine, unspecified, not intractable, without status migrainosus (principal); I27.20 Pulmonary hypertension, unspecified; G40.909 Epilepsy, unspecified, not intractable, without status epilepticus
CPT/HCPCS: 36415; 70450; 80053; 85025; 96361; 96374; 99282; A9270-GY; J2765